=== PATIENT | male | born 1955 | race Caucasian/White ===

== ENCOUNTER → 2016-07-03 | Outpatient (CLI) | payer BC ==
[2011-03-16 15:53] VITALS: BP 144/70
== END ==
LOC: RAD 11:15
DX: M79.661 Pain in right lower leg (principal); I83.891 Varicose veins of right lower extremity with other complications

== ENCOUNTER → 2016-10-06 | Outpatient (CLI) | payer BC ==
[2011-03-16 15:53] VITALS: BP 144/70
== END ==
LOC: LAB 11:48 → RAD 11:48
DX: R06.00 Dyspnea, unspecified (principal); K44.9 Diaphragmatic hernia without obstruction or gangrene
CPT/HCPCS: Q9967

== ENCOUNTER → 2017-07-05 | Outpatient (CLI) | payer BC ==
[2011-03-16 15:53] VITALS: BP 144/70
== END ==
LOC: MAMMO 14:03
DX: N63.24 Unspecified lump in the left breast, lower inner quadrant (principal)

== ENCOUNTER → 2017-09-27 | Outpatient (CLI) | payer BC ==
[2011-03-16 15:53] VITALS: BP 144/70
== END ==
LOC: RAD 08:57
DX: K57.32 Diverticulitis of large intestine without perforation or abscess without bleeding (principal); K57.30 Diverticulosis of large intestine without perforation or abscess without bleeding; K44.9 Diaphragmatic hernia without obstruction or gangrene
CPT/HCPCS: Q9967

== ENCOUNTER → 2018-07-01 | Outpatient (CLI) | payer MEDICARE, OTHER ==
[2011-03-16 15:53] VITALS: BP 144/70
[2018-07-01 11:26] LABS: EOS # 0.1 (0.04-0.40); EOS % 1.8 % (0.0-4.0); LYMPH# 1.2 (1.50-4.00); MEAN PLATELET VOLUME 9.7 fl (7.4-10.4); MONO # 0.5 (0.20-0.80); NEU # 5.3 (1.40-6.50); PLATELET COUNT 414 K/mm3 (130-400); RED BLOOD COUNT 5.18 M/mm3 (4.20-5.60); RED CELL DISTRIBUTION WIDTH 19.5 % (11.5-14.5); WHITE BLOOD COUNT 7.1 K/mm3 (4.8-10.8)
[2018-07-01 11:49] LABS: CALCIUM 9.2 mg/dL (8.8-10.0); POTASSIUM 4.1 mmol/L (3.5-5.1)
[2018-07-01 11:55] LABS: D-DIMER 1.88 mg/L FEU (0.15-0.50)
[2018-07-01 11:56] LABS: MEAN CELL VOLUME 66 fl (78-100); MEAN CORPUSCULAR HEMOGLOBIN 19 pg (27-31); MEAN CORPUSCULAR HGB CONC 29 g/dL (33-37)
== END ==
LOC: RAD 10:43 → LAB 10:43
PROVIDERS: Family Medicine
DX: M79.661 Pain in right lower leg (principal)

== ENCOUNTER → 2018-08-26 | Day surgery (SDC) | payer MEDICARE, OTHER ==
[2011-03-16 15:53] VITALS: BP 144/70
== END ==
LOC: MSO 08:03
DX: Z12.11 Encounter for screening for malignant neoplasm of colon (principal); D12.5 Benign neoplasm of sigmoid colon; K44.9 Diaphragmatic hernia without obstruction or gangrene; D50.9 Iron deficiency anemia, unspecified; Z79.82 Long term (current) use of aspirin; Z85.46 Personal history of malignant neoplasm of prostate; K21.9 Gastro-esophageal reflux disease without esophagitis; D64.9 Anemia, unspecified; Z85.828 Personal history of other malignant neoplasm of skin; Z96.652 Presence of left artificial knee joint; Z80.1 Family history of malignant neoplasm of trachea, bronchus and lung; Z80.42 Family history of malignant neoplasm of prostate; Z83.3 Family history of diabetes mellitus; Z90.79 Acquired absence of other genital organ(s); G47.33 Obstructive sleep apnea (adult) (pediatric)
CPT/HCPCS: 00813; J2704; J3010; J7120

== ENCOUNTER → 2019-09-11 | Outpatient (CLI) | payer MEDICARE, OTHER ==
[2011-03-16 15:53] VITALS: BP 144/70
== END ==
LOC: PT 09:30
DX: Z11.59 Encounter for screening for other viral diseases (principal); M17.0 Bilateral primary osteoarthritis of knee

== ENCOUNTER → 2019-10-30 13:00 | Outpatient (RCR) | payer MEDICARE, OTHER ==
[2011-03-16 15:53] VITALS: BP 144/70
== END | disposition home or self-care (01) ==
LOC: PT 09-22 10:57
DX: Z11.59 Encounter for screening for other viral diseases (principal); M17.0 Bilateral primary osteoarthritis of knee; Z96.652 Presence of left artificial knee joint

== ENCOUNTER → 2022-10-23 | Outpatient (CLI) | payer MEDICARE, OTHER | LOC: RAD 10:19 | DX: M25.552 Pain in left hip (principal) ==

== ENCOUNTER → 2023-09-05 | Day surgery (SDC) | payer MEDICARE, OTHER ==
[~2023-09-05] MED LIST: Balanced Salt Ophth Irrig 15 ML BOTTLE *BULK OP SCH; Cyclopentolate 2% Ophth Soln 1 BOTTLE *BULK OP SCH; EPINEPHrine 1 MG/ML (1:1000) 1 ML AMP IR SCH; Ketorolac 0.5% Ophth Soln 5 ML Bottle *BULK OP SCH; Midazolam 2 MG/2 ML VIAL IV ONE; Phenylephrine 10% Ophth Soln 5 ML BOTTLE *BULK OP SCH; Polymyxin B Sulfate/Trimethoprim Ophth Soln 10 ML BOTTLE *BULK OP SCH; Povidone Iodine 5% Ophth Soln 30 ML BOTTLE *BULK OP SCH; Proparacaine 0.5% Ophth Soln 15 ML BOTTLE *BULK OP SCH; Tropicamide 1% Ophth Soln Bottle *BULK OP SCH
== END | disposition home or self-care (01) ==
LOC: MSO 09:35
DX: H25.13 Age-related nuclear cataract, bilateral (principal); C61 Malignant neoplasm of prostate
CPT/HCPCS: 00142; J0171; J2250; V2632